=== PATIENT | male | born 1980 | race Caucasian/White ===

== ENCOUNTER 2024-09-02 19:58 | Emergency (ER) | payer MEDICAID, OTHER ==
[~2024-09-02] VITALS: Ht 175.3 cm; Wt 75.3 kg
--- NOTE | 2024-09-02 20:24 | ED.PDOC ---
History of Present Illness HPI Comments 43-year-old male with PMHx OCD, Anxiety presents with a chief complaint of anxiety. Patient states that he takes Prozac and Xanax which he reports he took today, but has not had relief of symptoms. Patient has pressured speech and states that he has "bad thoughts" and is requesting stronger medication to "calm me down". Patient mentions [facility], but they are closed for the day. Time Seen by MD: 20:17 Reviewed Notes: Medications, Allergies Home Meds Active Scripts Trazodone Hcl (Trazodone Hcl) 150 Mg Tab, 1 TAB PO QPM for 90 Days, #90 TAB 2 Refills Prov:IHSAN MEANS MD 09/02/24 Hydroxyzine HCl (Hydroxyzine Hydrochloride) 50 Mg Tab, 50 MG PO Q6HP PRN, #60 TAB Prov:IHSAN MEANS MD 09/02/24 Information Source: Patient Mode of Arrival: Ambulatory Severity: Moderate Timing: Hours Duration: Since onset Prehospital treatment: None Past Medical History PAST MEDICAL HISTORY: Anxiety Past Medical History (Other): OCD Surgical History: Denies all surgeries Family History Family History: Reviewed,noncontributory to illness Social History Smoker: Non-Smoker Alcohol: Denies ETOH Use Drugs: Denies Drug Use Lives In: Home Constitutional: denies: chills, diaphoresis, fatigue, fever, malaise, sweats, weakness, others EENTM: denies: blurred vision, double vision, ear bleeding, ear discharge, ear drainage, ear pain, ear ringing, eye pain, eye redness, hearing loss, mouth pain, mouth swelling, nasal discharge, nose bleeding, nose congestion, nose pain, photophobia, tearing, throat pain, throat swelling, voice changes, others Respiratory: denies: cough, hemoptysis, orthopnea, SOB at rest, shortness of breath, SOB with excertion, stridor, wheezing, others Cardiovascular: denies: chest pain, dizzy spells, diaphoresis, Dyspnea on exertion, edema, irregular heart beat, left arm pain, lightheadedness, palpitations, PND, syncope, others Gastrointestinal: denies: abdomen distended, abdominal pain, blood streaked bowels, constipated, diarrhea, dysphagia, difficulty swallowing, hematemesis, melena, nausea, poor appetite, poor fluid intake, rectal bleeding, rectal pain, vomiting, others Genitourinary: denies: burning, dysuria, flank pain, frequency, hematuria, incontinence, penile discharge, penile sore, pain, testicle pain, testicle swelling, urgency, others Neurological: denies: dizziness, fainting, headache, left sided numbness, left sided weakness, numbness, paresthesia, pre-existing deficit, right sided numbness, right sided weakness, seizure, speech problems, tingling, tremors, weakness, others Musculoskeletal: denies: back pain, gout, joint pain, joint swelling, muscle pain, muscle stiffness, neck pain, others Integumetry: denies: bruises, change in color, change in hair/nails, dryness, laceration, lesions, lumps, rash, wounds, others Allergic/Immunocompromised: denies: Difficulty Healing, Frequent Infections, Hives, Itching, others Hematologic/Lymphatic: denies: anemia, blood clots, easy bleeding, easy bruising, swollen glands, others Endocrine: denies: excessive hunger, excessive sweating, excessive thirst, excessive urination, flushing, intolerance to cold, intolerance to heat, unexplained weight gain, unexplained weight loss, others Psychiatric: reports: anxiety; denies: bipolar disorder, depression, hopeless, panic disorder, schizophrenia, sleepless, suicidal, others All Other Systems: Reviewed and Negative Physical Exam General Appearance: Mild Distress, Normal HEENT: Normal ENT Inspection, Pharynx Normal, TMs Normal Neck: Full Range of Motion, Non-Tender, Normal, Normal Inspection Respiratory: Chest Non-Tender, Lungs Clear, No Accessory Muscle Use, No Respiratory Distress, Normal Breath Sounds Cardiovascular: No Edema, No JVD, No Murmur, No Gallop, Normal Peripheral Pulses, Regular Rate/Rhythm Breast Exam: Deferred Gastrointestinal: No Organomegaly, Non Tender, No Pulsatile Mass, Normal Bowel Sounds, Soft Genitalia: Deferred Pelvic: Deferred Rectal: Deferred Extremities: No calf tenderness, Normal capillary refill, Normal inspection, Normal range of motion, Non-tender, No pedal edema Musculoskeletal : Apperance: Normal Neurologic: Alert, litigation attorney associate II-XII nml as Tested, No Motor Deficits, Normal Affect, No Sensory Deficits, Other (anxious affect) Cerebellar Function: Normal Reflexes: Normal Skin: Dry, Normal Color, Warm Lymphatic: No Adenopathy Was a procedure done? Was a procedure done?: No Differential Dx Considerations may include: Differential diagnosis includes but is not limited to: encephalitis, encephalopathy, toxic overdose, traumatic injury, infectious process, hypovolemia and others Time of 1ST Reevaluation: 20:47 Reevaluation 1ST: Unchanged Patient Education/Counseling: Diagnosis, Treatment, Prognosis Family Education/Counseling: No Family Present Departure 1 Departure Time of Disposition: 20:28 Impression: Primary Impression: Anxiety Additional Impression: Stress reaction causing mixed disturbance of emotion and conduct Disposition: 01 HOME / SELF CARE / HOMELESS Condition: Stable e-Prescriptions Trazodone Hcl (Trazodone Hcl) 150 Mg Tab 1 TAB PO QPM for 90 Days, #90 TAB 2 Refills Prov: IHSAN MEANS MD 09/02/24 Hydroxyzine HCl (Hydroxyzine Hydrochloride) 50 Mg Tab 50 MG PO Q6HP PRN, #60 TAB Prov: IHSAN MEANS MD 09/02/24 Discharged With: Self Critical Care Note Critical Care Time?: No Stability Stability form required: No Heart Score Heart Score: Heart Score Response (Comments) Value History N/A 0 EKG N/A 0 Age N/A 0 Risk Factors N/A 0 Troponin N/A 0 Total 0 I personally scribed for IHSAN MEANS MD ([email or web address]) on 09/02/24 at 20:24. Electronically submitted by Sumanth Quiles ([email or web address]). IHSAN MEANS MD Sep 02, 2024 20:24
[2024-09-02] MEDS ORDERED: HYDR50TA32 PO (20:25)
[2024-09-02] MEDS ORDERED: TRAZ1TAB12 PO (20:25)
[2024-09-02 20:40] VITALS: BP 123/53; TEMP 98.1
[2024-09-02 21:00] VITALS: PULSE 82; RESP 18; O2SAT 96
== END 2024-09-02 21:04 | disposition home or self-care (01) ==
LOC: ER 19:58
DX: F41.9 Anxiety disorder, unspecified (principal); F43.9 Reaction to severe stress, unspecified; Z79.899 Other long term (current) drug therapy